=== PATIENT | female | born 1965 | race Asian ===

== ENCOUNTER 2018-04-14 07:13 | Day surgery (SDC) | payer OTHER ==
[~2018-04-14] VITALS: Ht 157.5 cm; Wt 56.2 kg
[2018-04-14] MEDS ORDERED: KETOROLAC TROMETHAMINE 30 MG VIAL IVP PRN (11:15)
[2018-04-14] MEDS ORDERED: ONDANSETRON HCL 4 MG/2 ML VIAL IVP PRN ×2 (11:15→12:15)
[2018-04-14] MEDS ORDERED: fentaNYL CITRATE/PF 100 MCG/2 ML AMP IVP PRN ×2 (11:15)
[2018-04-14] MEDS ORDERED: HYDROcodone/ACETAMIN 5-325 MG TAB (NORCO/ VICODIN) PO PRN (12:15)
[2018-04-14] MEDS ORDERED: OXYCODONE/ACETAMINOPHEN 5-325 TABLET PO PRN ×2 (12:15)
[2018-04-14 12:55] VITALS: BP_SYST 132
== END 2018-04-14 15:20 | disposition home or self-care (01) ==
LOC: SMU 07:13 → SDS 07:13
PROVIDERS: ATTEND Specialist
DX: D27.0 Benign neoplasm of right ovary (principal); Z88.8 Allergy status to other drugs, medicaments and biological substances; Z98.890 Other specified postprocedural states; E03.9 Hypothyroidism, unspecified; Z79.899 Other long term (current) drug therapy; Z88.0 Allergy status to penicillin; Z68.22 Body mass index [BMI] 22.0-22.9, adult
CPT/HCPCS: 88305; 88307; 93005; C1727; C1782; J7120